=== PATIENT | male | born 1990 | race Caucasian/White ===

== ENCOUNTER 2022-07-22 17:11 | Outpatient (CLI) | payer BC, SELFPAY ==
--- NOTE | ~2022-07-22 | XR_ITS ---
EXAM: XR hand LT min 3V DATE: 07/22/2022 17:41 HISTORY: PAIN IN LT RING FINGER AND HAND FROM WRESTLING INJURY . COMPARISON: None available. FINDINGS: Normal mineralization. Likely oblique, nondisplaced fracture of the proximal and anterolat eral corner of the fourth middle phalange, seen only in one view. No lytic or blastic lesion. Joint s paces are maintained. No erosion or periosteal change. Soft tissue swelling over the fourth PIP. IMPRESSION: Likely oblique, nondisplaced fracture of the proximal and anterolateral aspect of the fou rth middle phalange. Consider dedicated left fourth finger radiographs if this finding is not clinica lly consistent. Reviewed, dictated and finalized at location [facility]. IMPRESSION: Likely oblique, nondisplaced fracture of the proximal and anterolat eral aspect of the fourth middle phalange. Consider dedicated left fourth finge r radiographs if this finding is not clinically consistent.
== END 2022-07-22 17:12 | disposition home or self-care (01) ==
DX: S62.655A Nondisplaced fracture of middle phalanx of left ring finger, initial encounter for closed fracture (principal); X58.XXXA Exposure to other specified factors, initial encounter
CPT/HCPCS: 73130